=== PATIENT | male | born 1955 | race Caucasian/White ===

== ENCOUNTER 2020-01-22 14:14 | Outpatient (CLI) | payer MEDICARE ==
[~2020-01-22 14:14] MED LIST: ALLO300T80 PO; ASPI325T17 PO; CYAN100028 PO; FURO-92 PO; FURO80TA77; GLUC15006 PO; KRIL1CAP5 PO; LISI1TAB20 PO; MULT-516 PO; POTA20TA6 PO; TIMO10DR7 EACHEYE
== END 2020-01-22 23:59 | disposition home or self-care (01) ==
LOC: WOUND 14:14
PROVIDERS: ATTEND Internal Medicine
DX: I87.333 Chronic venous hypertension (idiopathic) with ulcer and inflammation of bilateral lower extremity (principal); L97.222 Non-pressure chronic ulcer of left calf with fat layer exposed; L97.212 Non-pressure chronic ulcer of right calf with fat layer exposed; L97.321 Non-pressure chronic ulcer of left ankle limited to breakdown of skin; L97.311 Non-pressure chronic ulcer of right ankle limited to breakdown of skin; E66.01 Morbid (severe) obesity due to excess calories; Z87.891 Personal history of nicotine dependence; Z68.41 Body mass index [BMI] 40.0-44.9, adult
CPT/HCPCS: 97597; 97598; G0463; 29581